=== PATIENT | male | born 1975 | race Two or more races ===

== ENCOUNTER 2018-07-05 23:16 | Inpatient (IN) | payer MEDICAID ==
[~2018-07-05] VITALS: Ht 172.7 cm; Wt 77.1 kg
[~2018-07-05 23:16] MED LIST: CEPHALEXIN500 MG ORAL; IBUPROFEN600 MG ORAL; LIPITOR20 MG ORAL; LOPID600 MG ORAL; NKM; NORCO 5-325 TA1 EACH ORAL
--- NOTE | 2018-07-05 23:30 | NUR ---
ED Nurse Note: RECIEVED PT ON [facility], FROM HOME, AWAKE, ALERT AND ORIENTED X 4, PT IS LYING IN LIKE POSITION, MOANING AND GROANING, IN SEVERE ABDOMINAL PAIN, PT HAS HX OF PANCREATITIS AND STATES HAS BEEN DRINKING ALCOHOL, RATES PAIN AT 9/10, NO CP, NO SOB OR LABORED BREATHING, PT ALSO HAS NAUSEA, IMMEDIATELY GOWNED AND PLACED ON MONITORING, PT IS VERY UNCOMFORTABLE, IMMEDIATELY STARTED IV LINE ANBD LABS DRAWN, MD AWARE OF PT CONDITION.
[2018-07-05] MEDS ORDERED: Metoclopramide 10mg/2ml Inj IVP ONE (23:45)
[2018-07-05] MEDS ORDERED: Morphine Sulfate 4mg/ml Inj (IV USE ONLY) IVP ONE (23:45)
[2018-07-05 23:55] LABS: EOSINOPHILS % (AUTO) 0.6 % (0.0-3.0); HEMATOCRIT 41.5 % (42.0-52.0); LYMPHOCYTES % (AUTO) 17.2 % (20.0-45.0); MEAN CORPUSCULAR VOLUME 89 FL (80-99); MONOCYTES % (AUTO) 5.6 % (1.0-10.0); NEUTROPHILS % (AUTO) 75.6 % (45.0-75.0); PLATELET COUNT 280 K/UL (150-450); RED BLOOD COUNT 4.67 M/UL (4.70-6.10); RED CELL DISTRIBUTION WIDTH 12.1 % (11.6-14.8); WHITE BLOOD COUNT 14.1 K/UL (4.8-10.8)
[2018-07-06] VITALS (7 sets, daily range): BP systolic 96–118; BP diastolic 62–80
[2018-07-06 00:09] LABS: ALANINE AMINOTRANSFERASE < 6 U/L (12-78); ALBUMIN 3.3 G/DL (3.4-5.0); ALKALINE PHOSPHATASE 109 U/L (46-116); ASPARTATE AMINO TRANSFERASE 6 U/L (15-37); BILIRUBIN,TOTAL 1.4 MG/DL (0.2-1.0); BLOOD UREA NITROGEN 9 mg/dL (7-18); CARBON DIOXIDE 21 MMOL/L (21-32); CHLORIDE 96 MMOL/L (98-107); CREATININE 0.7 MG/DL (0.55-1.30); POTASSIUM 4.1 MMOL/L (3.5-5.1); SODIUM 132 MMOL/L (136-145)
[2018-07-06 00:12] LABS: CALCIUM 5.7 MG/DL (8.5-10.1)
[2018-07-06 00:27] LABS: BILIRUBIN,DIRECT < 0.1 MG/DL (0.0-0.3)
--- NOTE | 2018-07-06 01:00 | NUR ---
ED Nurse Note: PT CONTINUES TO REST IN BED, MEDS GIVEN FOR PAIN EFFECTIVE WITH PAIN LEVEL DECREASED TO 6/10, NO NAUSEA OR EMESIS, V/S STABLE, IV SITE PATENT WITYH FLUIDS INFUSING, PT FAMILY AT BEDSIDE, WILL CONTINUE TO CLOSELY MONITOR WHILE WAITING FOR RESULTS.
--- NOTE | 2018-07-06 02:16 | Emergency Room Report ---
History of Present Illness General Chief Complaint: Abdominal Pain Source: Patient Present Illness HPI Patient present with complaints of epigastric abdominal pain reports that he has a history of pancreatitis and feel similar to that Patient reports last flareup was about 3 months ago Patient does have history of increased alcohol intake however also reports that his cholesterol appears to have some pathology to this Pain is 10 out of 10 denies any fevers or chills denies any lower abdominal pain Allergies: Coded Allergies: No Known Allergies (Verified , 07/23/11) Patient History Past Medical History: see triage record Pertinent Family History: none Reviewed Nursing Documentation: PMH: Agreed; PSxH: Agreed Nursing Documentation-PM Past Medical History: No History, Except For Hx Cardiac Problems: Yes - High Cholesterol Hx Cancer: No Hx Gastrointestinal Problems: Yes - Pancreatitis Hx Neurological Problems: No Review of Systems All Other Systems: negative except mentioned in HPI Physical Exam Vital Signs Date Time Temp Pulse Resp B/P (MAP) Pulse Ox O2 Delivery O2 Flow Rate FiO2 07/05/18 23:18 98.2 99 24 132/73 95 Room Air Sp02 EP Interpretation: reviewed, normal General Appearance: mild distress - In pain Head: normocephalic, atraumatic Eyes: bilateral eye PERRL, bilateral eye EOMI ENT: hearing grossly normal, normal pharynx, TMs + canals normal, uvula midline Neck: full range of motion, supple, no meningismus, no bony tend Respiratory: lungs clear, normal breath sounds, no rhonchi, no respiratory distress, no retraction, no accessory muscle use Cardiovascular #1: normal peripheral pulses, regular rate, rhythm, no edema, no gallop, no JVD, no murmur Gastrointestinal: normal bowel sounds, non tender - On palpation however subjectively points to the epigastric area, soft, no mass, no organomegaly, non- distended, no guarding, no hernia, no pulsatile mass, no rebound Genitourinary: no CVA tenderness Musculoskeletal: normal inspection Neurologic: oriented x3, responsive, 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, motor strength/ tone normal, sensory intact Psychiatric: mood/affect normal Skin: normal color, no rash, warm/dry, palpation normal Lymphatic: normal inspection, no adenopathy Medical Decision Making Diagnostic Impression: Primary Impression: Hypocalcemia ER Course Patient is a fairly complex patient with multiple differential to consideration including but not limited to cardiac cardiopulmonary and vascular emergencies Patient's lipase levels that she normal however the calcium level appeared low Ionized calcium is obtained patient had further hydration will have chemistry repeated As the patient's calcium level remains low Patient is admitted for further evaluation and inpatient care Labs Test 07/05/18 23:30 07/06/18 00:00 White Blood Count 14.1 K/UL (4.8-10.8) Red Blood Count 4.67 M/UL (4.70-6.10) Hemoglobin 18.0 G/DL (14.2-18.0) Hematocrit 41.5 % (42.0-52.0) Mean Corpuscular Volume 89 FL (80-99) Mean Corpuscular Hemoglobin 38.5 PG (27.0-31.0) Mean Corpuscular Hemoglobin Concent 43.4 G/DL (32.0-36.0) Red Cell Distribution Width 12.1 % (11.6-14.8) Platelet Count 280 K/UL (150-450) Mean Platelet Volume 5.3 FL (6.5-10.1) Neutrophils (%) (Auto) 75.6 % (45.0-75.0) Lymphocytes (%) (Auto) 17.2 % (20.0-45.0) Monocytes (%) (Auto) 5.6 % (1.0-10.0) Eosinophils (%) (Auto) 0.6 % (0.0-3.0) Basophils (%) (Auto) 1.0 % (0.0-2.0) Sodium Level 132 MMOL/L (136-145) Potassium Level 4.1 MMOL/L (3.5-5.1) Chloride Level 96 MMOL/L (98-107) Carbon Dioxide Level 21 MMOL/L (21-32) Blood Urea Nitrogen 9 mg/dL (7-18) Creatinine 0.7 MG/DL (0.55-1.30) Estimat Glomerular Filtration Rate > 60 mL/min (>60) Glucose Level 225 MG/DL (74-106) Calcium Level 5.7 MG/DL (8.5-10.1) Total Bilirubin 1.4 MG/DL (0.2-1.0) Direct Bilirubin < 0.1 MG/DL (0.0-0.3) Aspartate Amino Transf (AST/SGOT) 6 U/L (15-37) Alanine Aminotransferase (ALT/SGPT) < 6 U/L (12-78) Alkaline Phosphatase 109 U/L (46-116) Total Protein 7.5 G/DL (6.4-8.2) Albumin 3.3 G/DL (3.4-5.0) Globulin 4.2 g/dL Lipase 167 U/L (73-393) Serum Alcohol < 3 mg/dL Rhythm Strip Diag. Results EP Interpretation: yes Rate: 77 Rhythm: NSR, no PVC's, no ectopy Last Vital Signs Date Time Temp Pulse Resp B/P (MAP) Pulse Ox O2 Delivery O2 Flow Rate FiO2 07/06/18 00:32 98.3 07/05/18 23:18 99 24 132/73 95 Room Air Status: improved Disposition: ADMITTED INPATIENT Condition: Serious Scripts Pantoprazole* (PANTOPRAZOLE*) 40 Mg Tablet. 40 MG ORAL DAILY for 30 Days, #30 TAB Prov: Onur Luke MD 07/08/18 Referrals: NOT CHOSEN IPA/,REFERRING (PCP) Yanely Jiang DO Jul 06, 2018 02:16
--- NOTE | 2018-07-06 02:45 | NUR ---
ED Nurse Note: PT RESTING QUIETLY IN BED,A WAKE AND ALERT, PT STATES PAIN LEVEL IS INCREASING AGAIN AND ASKING FOR MORE PAIN MEDS, MD AWARE, NO PAIN MED ORDERS GIVEN, PT REMAINS ON CARDIAC MONITORING, IV SITE PATENT, NAD OR CHANGES NOTED, WILL CONTINUE TO CLOSELY MONITOR.
[2018-07-06] MEDS ORDERED: Lidocaine 2% Visc 15ml soln ORAL ONE (03:15)
[2018-07-06] MEDS ORDERED: Mylanta II UD 30ml ORAL ONE (03:15)
[2018-07-06] MEDS ORDERED: Dicyclomine HCl 10mg/5ml oral soln ORAL ONE (03:15)
[2018-07-06 03:45] LABS: APPEARANCE,URINE CLEAR; BILIRUBIN, URINE NEGATIVE (NEGATIVE); COLOR,URINE PALE YELLOW; GLUCOSE, URINE (UA) NEGATIVE (NEGATIVE); KETONES,URINE 1+ (NEGATIVE); LEUKOCYTE ESTERASE ,URINE 1+ (NEGATIVE); NITRITE,URINE NEGATIVE (NEGATIVE); PH,URINE 6 (4.5-8.0); PROTEIN,URINE NEGATIVE (NEGATIVE); UROBILINOGEN,URINE NORMAL MG/DL (0.0-1.0)
[2018-07-06 03:48] LABS: ALANINE AMINOTRANSFERASE < 6 U/L (12-78); ALBUMIN 2.9 G/DL (3.4-5.0); ALKALINE PHOSPHATASE 99 U/L (46-116); ASPARTATE AMINO TRANSFERASE 5 U/L (15-37); BILIRUBIN,TOTAL 1.1 MG/DL (0.2-1.0); BLOOD UREA NITROGEN 8 mg/dL (7-18); CARBON DIOXIDE 10 MMOL/L (21-32); CHLORIDE 99 MMOL/L (98-107); CREATININE 0.7 MG/DL (0.55-1.30); POTASSIUM 4.6 MMOL/L (3.5-5.1); SODIUM 134 MMOL/L (136-145)
[2018-07-06 03:55] LABS: CALCIUM 5.9 MG/DL (8.5-10.1)
--- NOTE | 2018-07-06 04:00 | NUR ---
ED Nurse Note: PT CONTINUES TO C/O PAIN WORSENING, PT IN BED MOANING AND GUARDING SITE, V/S STABLE, PT RATES PAIN AT 8/10, PT MEDICATED WITH GI COCKTAIL, NOT EFFECTIVE, MD AWARE, WILL CONTINUE TO CLOSELY MONITOR, CALCIUM ADMINISTERED ORDERED, PT TO BE ADMITTED FOR LOW CALCIUM LEVELS.
[2018-07-06 04:13] LABS: PHOSPHORUS 3.3 MG/DL (2.5-4.9)
[2018-07-06] MEDS ORDERED: Calcium Gluconate 10% 1 GM in NS 110 ML IVPB ONE (04:15)
--- NOTE | 2018-07-06 05:10 | NUR ---
ED Nurse Note: pt getting out of bed looking for staff, pt stattes his abd pain is so severe he can not take it, md is aware and has been, no new med orders recieved, reported to charge nurse jack whom called md, no new orders recieved, pt in bed sitting on edge and in pain, will continue to closely monitor and attempt to console for pain as needed. v/s stable and no cp.
[2018-07-06] MEDS ORDERED: HYDROmorphone 1mg/ml Carpuject IVP ONE (05:30)
--- NOTE | 2018-07-06 06:05 | NUR ---
ED Nurse Note: Pt has room for admit, report given to cassandra valle on unit, room is not available yet, nurse will call down when room is clean, pt is in bed awake, alert and oriented x 4, recently medicated with dilaudid for pain, iv site intact and patent, belongings list completed, pt denies cp, sob, or labored breathing, report given to cassandra hill to send pt to floor bed.
--- NOTE | 2018-07-06 06:31 | NUR ---
ED Nurse Note: Patient transferred by Onesimo HANEY to the floor. Patient in stable condition.
--- NOTE | 2018-07-06 06:40 | NUR ---
NURSE NOTES: patient received. patient in no acute distress at this time. patient complains of no pain at this time. patient awake alert and oriented x4. bed in lowest position and locked. call light within reach. bed alarm on. oriented to room. IV intact and asymptomatic. will continue to monitor.
--- NOTE | 2018-07-06 07:08 | NUR ---
HAND-OFF: Report given to cassandra rodríguez.
--- NOTE | 2018-07-06 07:09 | NUR ---
NURSE NOTES: Received patient sleeping comfortably in bed. IV site at right antecubital, 20 gauge, saline lock. Bed at lowest level with 3 side rails up. Call light within reach. In no apparent distress at this time. Will continue to monitor.
[2018-07-06] MEDS ORDERED: Morphine Sulfate 2mg/ml Inj(IV/IM USE ONLY) IVP PRN (07:30)
[2018-07-06] MEDS ORDERED: Morphine Sulfate 4mg/ml Inj (IV USE ONLY) IVP PRN (07:30)
[2018-07-06] MEDS ORDERED: Milk of Magnesia 30ml Ud ORAL PRN (07:30)
[2018-07-06] MEDS ORDERED: Calcium Gluconate 1gm/10ml vial IVP SCH (08:00)
--- NOTE | 2018-07-06 09:10 | NUR ---
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
--- NOTE | 2018-07-06 11:57 | History & Physical ---
History and Physical History & Physicial HP dictated # [id number] Onur Luke MD Jul 06, 2018 11:57
[2018-07-06] MEDS ORDERED: Isovue-300 100ml vial INJ PRN (12:00)
[2018-07-06] MEDS ORDERED: Calcium Gluconate 10% 2 GM in NS 110 ML IVPB SCH (13:00)
[2018-07-06] MEDS: D5 1/2NS 1,000 ML IV SCH ×2 (15:33→18:16)
--- NOTE | 2018-07-06 17:45 | History and Physical Report ---
DATE OF ADMISSION: 07/06/2018 CHIEF COMPLAINT: Epigastric pain. HISTORY OF PRESENT ILLNESS: This is a 42-year-old male, who came to the emergency room yesterday for severe abdominal pain. The patient had a previous history of pancreatitis and feels the same. He describes the pain at 10/10. Pain is waxing and waning. I just saw him now and he had severe pain again. PAST MEDICAL HISTORY: Apparently, the patient has history of hypercholesteremia as well. MEDICATIONS: Reviewed in the EMR. SOCIAL HISTORY: The patient says he does not drink as much a few beers a day. No history of smoking. REVIEW OF SYSTEMS: As above. PHYSICAL EXAMINATION: GENERAL: The patient is a 42-year-old male, in acute distress from his pain. VITAL SIGNS: Blood pressure is 110/73, pulse 80, respirations 16, and temperature 98.3. HEENT: [place] conjunctivae. Anicteric sclerae. NECK: Supple. LUNGS: Clear to auscultation. HEART: S1, S2 without murmurs or rubs. ABDOMEN: Soft. Epigastric tenderness. EXTREMITIES: No cyanosis or edema. LABORATORY FINDINGS: Chemistry panel shows serum sodium 134, potassium 4.6, chloride 99, CO2 10, BUN 8, and creatinine 0.7. Blood sugar is 201. Calcium is 5.9. Phosphorus 3.3. Lipase was 167. UA was unremarkable except 1+ ketones. ASSESSMENT: This is a 42-year-old male with history of alcohol abuse, who presents now with abdominal pain, which is mostly epigastric, so acute gastritis needs to be ruled out. The patient has a reported history of pancreatitis. His lipase is not very elevated, but he may have flare up of some chronic pancreatitis and indeed he has also hypocalcemia, which is concerning and which could go along with diagnosis. PLAN: The patient will be given IV calcium. He was started on proton pump inhibitors. He will have a CT scan of abdomen and pelvis. He is being hydrated with IV fluids. Currently NPO. His laboratories will be followed. Also, we will check his lipid panel and make sure that he does not have severe hypertriglyceridemia. Onur Luke M.D. DR: BHAKTI JOB#: [id number] CC:
--- NOTE | 2018-07-06 19:18 | Diagnostic Imaging Report ---
Indication: Abdominal pain Technique: Continuous helical transaxial imaging of the abdomen and pelvis was obtained from the lung bases to the pubic symphysis during intravenous contrast administration. Coronal 2-D reformats were also obtained. Study obtained in a Siemens sensation [address] Automatic Exposure Control was utilized. Total Dose length Product (DLP): 1403.[address] Dose Index Volume (CTDIvol): 16.55,17.85 mGy Comparison: 07/22/2011 Findings: The head of the pancreas is ill-defined and slightly enlarged. The findings are suspicious for acute pancreatitis. Within the head of the pancreas, there is a small hypodensity. This was probably present on the prior examination but is better demonstrated currently and measures about 8 mm in diameter. This is probably cystic. This may not be related to the pancreatitis. Aortoiliac calcifications are present consistent with atherosclerotic disease. There is mild posterior basal atelectasis. A small hiatal hernia is present. The gallbladder is notable for a fluid fluid level which may be due to sludge. There is no definite biliary ductal dilatation identified within the liver. There is no evidence of bowel obstruction. There is no ascites. The bladder is unremarkable. There is no hydronephrosis. The appendix is partially seen and there are no secondary signs of acute appendicitis. IMPRESSION: Suspected acute pancreatitis in the area of the pancreatic head. 8 mm incidental cystic focus within the head of the pancreas probably present in 2011 though more conspicuous on the current examination. Consider a follow-up contrast-enhanced CT or gadolinium-enhanced MR to evaluate this further. Mild posterior basal atelectasis. Suggestion of a gallbladder sludge. No biliary ductal dilatation identified. Small hiatal hernia. The CT scanner at [facility] is accredited by the [employer] and the scans are performed using dose optimization techniques as appropriate to a performed exam including Automatic Exposure control.
--- NOTE | 2018-07-06 19:19 | NUR ---
HAND-OFF: Report given to LYNDON Aguilar.
--- NOTE | 2018-07-06 19:34 | NUR ---
NURSE NOTES: patient received. patient in no acute distress at this time. patient complains of no pain at this time. patient awake alert and oriented x4. patient IV intact patent and asymptomatic. Patient steady and ambulates to the bathroom. bed in lowest position and locked. call light within reach. will continue to monitor,.
[2018-07-06] MEDS: Atorvastatin 20mg tab ORAL SCH (20:24)
[2018-07-07] VITALS: BP 105/58
[2018-07-07 04:00] VITALS: BP 113/78
[2018-07-07] MEDS: D5 1/2NS 1,000 ML IV SCH ×2 (04:16→14:30)
--- NOTE | 2018-07-07 07:20 | NUR ---
HAND-OFF: Report given to cassandra neville.
[2018-07-07 07:32] LABS: ANION GAP 8 mmol/L (5-15); BLOOD UREA NITROGEN 6 mg/dL (7-18); CALCIUM 8.9 MG/DL (8.5-10.1); CARBON DIOXIDE 30 MMOL/L (21-32); CHLORIDE 100 MMOL/L (98-107); CHOLESTEROL 224 MG/DL (< 200); CREATININE 0.8 MG/DL (0.55-1.30); HDL CHOLESTEROL 20 MG/DL (40-60); POTASSIUM 3.9 MMOL/L (3.5-5.1); SODIUM 138 MMOL/L (136-145); TRIGLYCERIDES 938 MG/DL (30-150)
--- NOTE | 2018-07-07 07:40 | NUR ---
NURSE NOTES: Patient is alert and oriented. No reports of discomfort at the moment. Bed is locked, side rails are up X2, and in lowest position. IVF is infusing at 100 ml/hr. IV is intact. Will continue to monitor.
[2018-07-07 08:00] VITALS: BP 109/73
[2018-07-07 12:00] VITALS: BP 98/60
--- NOTE | 2018-07-07 14:17 | General Progress Note ---
Assessment/Plan Problem List: (1) Hypocalcemia ICD Codes: E83.51 - Hypocalcemia SNOMED: 9623341 (2) Acute pancreatitis ICD Codes: K85.9 - Acute pancreatitis, unspecified SNOMED: 589523112 Status Narrative better Assessment/Plan IVF advance diet DC in AM if stable Subjective Allergies: Coded Allergies: No Known Allergies (Verified , 07/23/11) Subjective feels better Objective Last 24 Hour Vital Signs Date Time Temp Pulse Resp B/P (MAP) Pulse Ox O2 Delivery O2 Flow Rate FiO2 07/07/18 12:00 98.3 84 16 98/60 (73) 98 07/07/18 08:45 Room Air 07/07/18 08:00 97.3 76 16 109/73 (85) 96 07/07/18 04:00 98.2 77 20 113/78 (90) 95 07/07/18 00:00 98.1 81 20 105/58 (74) 97 07/06/18 21:00 Room Air 07/06/18 20:00 98.7 90 18 96/68 (77) 98 07/06/18 17:15 98.6 07/06/18 16:00 98.6 100 20 100/62 (75) 98 Intake and Output 07/06/18 07/07/18 19:00 07:00 Intake Total 2000 ml Balance 2000 ml Intake Oral 2000 ml # Voids 3 2 Laboratory Tests 07/07/18 06:24: Sodium Level 138, Potassium Level 3.9, Chloride Level 100, Carbon Dioxide Level 30, Anion Gap 8, Blood Urea Nitrogen 6L, Creatinine 0.8, Estimat Glomerular Filtration Rate > 60, Glucose Level 109H, Hemoglobin A1c 6.1H, Calcium Level 8.9 #, Calcium (Send out) [Pending], Triglycerides Level 938H, Cholesterol Level 224H, LDL Cholesterol 38, HDL Cholesterol 20L, Cholesterol/HDL Ratio 11.2H, Lipase 64L, Vitamin D 25-Hydroxy [Pending], 25-Hydroxy Vitamin D2 [Pending], 25- Hydroxy Vitamin D3 [Pending], Parathyroid Hormone (Intact) [Pending] Height (Feet): 5 Height (Inches): 8.00 Weight (Pounds): 170 Cardiovascular: normal rate Respiratory/Chest: lungs clear Abdomen: non tender, soft Onur Luke MD Jul 07, 2018 14:17
--- NOTE | 2018-07-07 15:36 | NUR ---
GRIDDLE COOKWIENER PACKER SI:ACUTE PANCREATITIS VS: BP 105/58, P 81, T 97.3, RR 16, SpO2 95 BUN 6, Hemoglobin A1c 6.1 IS:PROTONIX 40mG LIPITOR 20mg DILAUDID 2mg IVP D5/NS x1L IV MED/SURG STATUS
[2018-07-07 16:00] VITALS: BP 109/70
--- NOTE | 2018-07-07 19:30 | NUR ---
HAND-OFF: Report given to LYNDON Jones.
--- NOTE | 2018-07-07 19:30 | NUR ---
NURSE NOTES: Patient awake sitting on chair and seen ambulating around the unit, steady, alert and oriented x4. Instructed the use of call light. Call light and needs in reach. Bed in lowest position, lock engaged and alarm on. Will continue to monitor.
[2018-07-07 20:00] VITALS: BP 110/73
[2018-07-07] MEDS: Atorvastatin 20mg tab ORAL SCH (20:10)
--- NOTE | 2018-07-07 23:35 | NUR ---
NURSE NOTES: Pt requested to be off from IVF.Explained risks and benefits. Pt verbalized understanding.
[2018-07-08 04:00] VITALS: BP 103/71
[2018-07-08] MEDS: D5 1/2NS 1,000 ML IV SCH ×2 (05:39→10:16)
--- NOTE | 2018-07-08 06:53 | NUR ---
HAND-OFF: Report given to LYNDON Tucker.
--- NOTE | 2018-07-08 07:01 | NUR ---
NURSE NOTES: Received report from LYNDON Bhatti. Pt in bed, asleep, respirations regular and unlabored, no apparent distress noted, IV fluids running according to order, bed in lowest position, call light within reach.
[2018-07-08 08:00] VITALS: BP 107/70
--- NOTE | 2018-07-08 10:20 | NUR ---
NURSE NOTES: Pt is asking about being discharged today. Called Dr. Tristan Luke to discuss discharge. Dr. Luke stated he will be in to see the pt today and decide.
[2018-07-08] MEDS ORDERED: PANTOPRAZOLE SO40 MG ORAL (11:47)
--- NOTE | 2018-07-08 11:48 | General Progress Note ---
Assessment/Plan Problem List: (1) Hypocalcemia ICD Codes: E83.51 - Hypocalcemia SNOMED: 3924404 (2) Acute pancreatitis ICD Codes: K85.9 - Acute pancreatitis, unspecified SNOMED: 292120031 Assessment/Plan Dc today keep on protonix no NSAIDs Subjective Allergies: Coded Allergies: No Known Allergies (Verified , 07/23/11) Subjective feels better Objective Last 24 Hour Vital Signs Date Time Temp Pulse Resp B/P (MAP) Pulse Ox O2 Delivery O2 Flow Rate FiO2 07/08/18 09:00 Room Air 07/08/18 08:00 98.2 87 18 107/70 (82) 95 07/08/18 04:00 98.2 74 18 103/71 (82) 97 07/07/18 21:00 Room Air 07/07/18 20:00 99.0 103 18 110/73 (85) 98 07/07/18 16:00 98.5 84 18 109/70 (83) 97 07/07/18 12:00 98.3 84 16 98/60 (73) 98 Intake and Output 07/07/18 07/08/18 18:59 06:59 Intake Total 480 ml 1300 ml Balance 480 ml 1300 ml Intake Oral 480 ml 500 ml IV Total 800 ml # Voids 3 Height (Feet): 5 Height (Inches): 8.00 Weight (Pounds): 170 Cardiovascular: normal rate Respiratory/Chest: lungs clear Abdomen: soft Onur Luke MD Jul 08, 2018 11:48
[2018-07-08 12:00] VITALS: BP 133/56
[2018-07-08] MEDS ORDERED: Tubing IV Secondary IV ONE (13:09)
[2018-07-08] MEDS ORDERED: D5 1/2NS 1000ml IV ONE (13:09)
--- NOTE | 2018-07-08 13:17 | NUR ---
NURSE NOTES: pt discharged home with all belongings. Accompanied by family member, Zenaida. IV removed, ID band removed, pt stable, ambulatory for discharge home.
--- NOTE | 2018-07-12 10:34 | Discharge Summary ---
Discharge Summary Discharge Summary _ DATE OF ADMISSION: 07/06/2018 DATE OF DISCHARGE: 07/08/2018 DISCHARGED BY: Dr. Onur Luke BRIEF HOSPITAL COURSE: Patient is a 42-year-old male, who came to the emergency room complaining of severe abdominal pain. Patient has history of cholesterolemia and pancreatitis and felt symptoms were this same. He described the pain to be 10/10. Pain was waxing and waning. On evaluation at the ED, vital signs were stable. At work showed WBC elevated to 14, hemoglobin 18, hematocrit 41. Sodium was 132, chloride 96, BUN 9 and creatinine 0.7. Glucose was 225, calcium 5.7, LFTs and lipase were normal. Serum alcohol was less than 3. EKG showed normal sinus rhythm. He was admitted for evaluation of abdominal pain, reported history of pancreatitis and hypocalcemia. He was placed on n.p.o. He was given proton pump inhibitors. He was given IV calcium gluconate replacement. He was given IV fluids. CT scan of the abdomen and pelvis showed suspected acute pancreatitis in the area of the pancreatic head. Triglyceride was elevated to 930. LDL 220. Vitamin D 25-OH was 26. PTH is still pending. He was placed on proton pump inhibitors. He was given Lipitor. Lipase normalized. Diet was advanced. Calcium level normalized. He was able to tolerate diet. He was advised to continue Protonix. Patient was discharged home. FINAL DIAGNOSES: Acute pancreatitis Hypocalcemia DISPOSITION: Patient was discharged home. DISCHARGE MEDICATIONS: Refer to Discharge Medication List. DISCHARGE INSTRUCTIONS: Follow-up in a week. I have been assigned to complete a discharge summary on this account, I was not involved with the patient's management. Piedad Blum NP Jul 12, 2018 10:34
== END 2018-07-08 13:10 | disposition home or self-care (01) | DRG 282 ==
LOC: EMR 23:59 → 4E 07-06 04:11 → EDBEDREQ 07-06 05:46
DX: K85.90 Acute pancreatitis without necrosis or infection, unspecified (principal); E83.51 Hypocalcemia
CPT/HCPCS: 36415; 74177; 80048; 80053; 80061; 80307; 80329; 81003; 82248; 82306; 82330; 83036; 83690; 83735; 83970; 84100; 85025; 96361; 96365; 96375; 99285; J2405; J2765

== ENCOUNTER 2018-11-11 18:06 | Emergency (ER) | payer MEDICAID ==
[~2018-11-11] VITALS: Ht 165.1 cm; Wt 70.3 kg
[~2018-11-11 18:06] MED LIST changes: +PANTOPRAZOLE SO40 MG ORAL
[2018-11-11] MEDS ORDERED: NKM (18:21)
--- NOTE | 2018-11-11 18:33 | NUR ---
ED Nurse Note: Pt walked in ED c/o diarrhea x2days, denies n/v.
[2018-11-11 18:45] VITALS: BP 119/75
[2018-11-11 19:10] LABS: BASOPHILS % (AUTO) 0.5 % (0.0-2.0); EOSINOPHILS % (AUTO) 0.2 % (0.0-3.0); HEMATOCRIT 40.2 % (42.0-52.0); LYMPHOCYTES % (AUTO) 13.4 % (20.0-45.0); MEAN CORPUSCULAR VOLUME 89 FL (80-99); MONOCYTES % (AUTO) 6.3 % (1.0-10.0); NEUTROPHILS % (AUTO) 79.6 % (45.0-75.0); PLATELET COUNT 198 K/UL (150-450); RED BLOOD COUNT 4.53 M/UL (4.70-6.10); RED CELL DISTRIBUTION WIDTH 11.9 % (11.6-14.8); WHITE BLOOD COUNT 7.7 K/UL (4.8-10.8)
--- NOTE | 2018-11-11 19:24 | NUR ---
ED Nurse Note: Received patient from LYNDON Gonzalez. patient at no distress at this time. patient unable to give urine
[2018-11-11 19:39] LABS: ALANINE AMINOTRANSFERASE < 6 U/L (12-78); ALBUMIN 3.2 G/DL (3.4-5.0); ALKALINE PHOSPHATASE 100 U/L (46-116); ANION GAP 9 mmol/L (5-15); ASPARTATE AMINO TRANSFERASE < 5 U/L (15-37); BILIRUBIN,TOTAL 0.9 MG/DL (0.2-1.0); BLOOD UREA NITROGEN 11 mg/dL (7-18); CALCIUM 6.7 MG/DL (8.5-10.1); CARBON DIOXIDE 26 MMOL/L (21-32); CHLORIDE 97 MMOL/L (98-107); CREATININE 0.7 MG/DL (0.55-1.30); POTASSIUM 3.9 MMOL/L (3.5-5.1); SODIUM 132 MMOL/L (136-145)
[2018-11-11 19:42] LABS: ALBUMIN/GLOBULIN RATIO 0.8 (1.0-2.7)
[2018-11-11 20:15] LABS: APPEARANCE,URINE CLEAR; BILIRUBIN, URINE NEGATIVE (NEGATIVE); COLOR,URINE PALE YELLOW; GLUCOSE, URINE (UA) NEGATIVE (NEGATIVE); KETONES,URINE NEGATIVE (NEGATIVE); LEUKOCYTE ESTERASE ,URINE NEGATIVE (NEGATIVE); NITRITE,URINE NEGATIVE (NEGATIVE); PH,URINE 6 (4.5-8.0); PROTEIN,URINE NEGATIVE (NEGATIVE); UROBILINOGEN,URINE NORMAL MG/DL (0.0-1.0)
--- NOTE | 2018-11-11 20:54 | Emergency Room Report ---
History of Present Illness General Chief Complaint: Diarrhea Source: Patient Present Illness HPI This patient states that for the past few days he has had a crampy diarrhea and crampy abdominal pain. He has had nausea but no vomiting. He has had intermittent chills. He also states he has been urinating frequently. He denies chest pain or shortness of breath. He denies blood in his stool. He denies recent travel. He has no other complaints. Allergies: Coded Allergies: No Known Allergies (Verified , 07/23/11) Patient History Past Medical History: see triage record, other - HLP Social History: Reports: drug use - THC; Denies: smoking, alcohol use Reviewed Nursing Documentation: PMH: Agreed; PSxH: Agreed Nursing Documentation-PM Past Medical History: No Stated History Hx Cardiac Problems: Yes Hx Cancer: No Hx Gastrointestinal Problems: Yes Hx Neurological Problems: No Review of Systems All Other Systems: negative except mentioned in HPI Physical Exam Vital Signs Date Time Temp Pulse Resp B/P (MAP) Pulse Ox O2 Delivery O2 Flow Rate FiO2 11/11/18 18:14 112 21 111/70 (84) 93 Room Air 11/11/18 18:45 98.9 Sp02 EP Interpretation: reviewed, normal General Appearance: no apparent distress, alert, GCS 15, non-toxic Head: normocephalic, atraumatic Eyes: bilateral eye normal inspection, bilateral eye PERRL ENT: hearing grossly normal, normal pharynx, no angioedema, normal voice Neck: full range of motion, supple/symm/no masses Respiratory: chest non-tender, lungs clear, normal breath sounds, no respiratory distress, no retraction, no accessory muscle use, speaking full sentences Cardiovascular #1: regular rate, rhythm, no edema Gastrointestinal: normal bowel sounds, non tender, soft, non-distended, no guarding, no rebound Rectal: deferred Musculoskeletal: back normal, gait/station normal, normal range of motion, non- tender Neurologic: alert, oriented x3, responsive, motor strength/tone normal, sensory intact, speech normal Psychiatric: judgement/insight normal, memory normal, mood/affect normal, no suicidal/homicidal ideation Skin: no rash, warm/dry Medical Decision Making Diagnostic Impression: Primary Impression: Diarrhea Additional Impression: Hyperglycemia ER Course This patient is found to have hyperglycemia and polyuria. I suspect the patient has undiagnosed diabetes. I will start the patient on metformin very low dose but I instructed the patient to follow-up very closely with his primary care physician. This patient also has a clinical presentation consistent with viral enteritis. The patient's abdominal exam was benign. I do not suspect cholecystitis, pancreatitis, appendicitis or diverticulitis based on history and physical and laboratory workup. This is likely viral in etiology. The patient is nontoxic and nonsurgical at this time. The patient was given return precautions and followup instructions. Laboratory Tests Test 11/11/18 18:40 11/11/18 19:55 White Blood Count 7.7 K/UL (4.8-10.8) Red Blood Count 4.53 M/UL (4.70-6.10) L Hemoglobin 16.0 G/DL (14.2-18.0) Hematocrit 40.2 % (42.0-52.0) L Mean Corpuscular Volume 89 FL (80-99) Mean Corpuscular Hemoglobin 35.3 PG (27.0-31.0) H Mean Corpuscular Hemoglobin Concent 39.8 G/DL (32.0-36.0) H Red Cell Distribution Width 11.9 % (11.6-14.8) Platelet Count 198 K/UL (150-450) Mean Platelet Volume 5.0 FL (6.5-10.1) L Neutrophils (%) (Auto) 79.6 % (45.0-75.0) H Lymphocytes (%) (Auto) 13.4 % (20.0-45.0) L Monocytes (%) (Auto) 6.3 % (1.0-10.0) Eosinophils (%) (Auto) 0.2 % (0.0-3.0) Basophils (%) (Auto) 0.5 % (0.0-2.0) Sodium Level 132 MMOL/L (136-145) L Potassium Level 3.9 MMOL/L (3.5-5.1) Chloride Level 97 MMOL/L (98-107) L Carbon Dioxide Level 26 MMOL/L (21-32) Anion Gap 9 mmol/L (5-15) Blood Urea Nitrogen 11 mg/dL (7-18) Creatinine 0.7 MG/DL (0.55-1.30) Estimate Glomerular Filtration Rate > 60 mL/min (>60) Glucose Level 195 MG/DL (74-106) H Calcium Level 6.7 MG/DL (8.5-10.1) L Total Bilirubin 0.9 MG/DL (0.2-1.0) Aspartate Amino Transferase (AST) < 5 U/L (15-37) L Alanine Aminotransferase (ALT) < 6 U/L (12-78) L Alkaline Phosphatase 100 U/L (46-116) Total Protein 7.3 G/DL (6.4-8.2) Albumin 3.2 G/DL (3.4-5.0) L Globulin 4.1 g/dL Albumin/Globulin Ratio 0.8 (1.0-2.7) L Lipase 47 U/L (73-393) L Serum Alcohol < 3 mg/dL Urine Color Pale yellow Urine Appearance Clear Urine pH 6 (4.5-8.0) Urine Specific [place] 1.015 (1.005-1.035) Urine Protein Negative (NEGATIVE) Urine Glucose (UA) Negative (NEGATIVE) Urine Ketones Negative (NEGATIVE) Urine Blood Negative (NEGATIVE) Urine Nitrite Negative (NEGATIVE) Urine Bilirubin Negative (NEGATIVE) Urine Urobilinogen Normal MG/DL (0.0-1.0) Urine Leukocyte Esterase Negative (NEGATIVE) Urine Opiates Screen Negative (NEGATIVE) Urine Barbiturates Screen Negative (NEGATIVE) Phencyclidine (PCP) Screen Negative (NEGATIVE) Urine Amphetamines Screen Positive (NEGATIVE) H Urine Benzodiazepines Screen Negative (NEGATIVE) Urine Cocaine Screen Negative (NEGATIVE) Urine Marijuana (THC) Screen Negative (NEGATIVE) Last Vital Signs Date Time Temp Pulse Resp B/P (MAP) Pulse Ox O2 Delivery O2 Flow Rate FiO2 11/11/18 18:45 98.9 96 21 119/75 96 Room Air Status: improved Disposition: HOME, SELF-CARE Condition: Improved Patient Instructions: Diarrhea, Adult Brenda Lozano DO Nov 11, 2018 20:54
[2018-11-11] MEDS ORDERED: METFORMIN HCL500 M1 ORAL (20:55)
[2018-11-11 21:00] VITALS: BP 125/73
--- NOTE | 2018-11-11 21:00 | NUR ---
ER DISCHARGE NOTE: Patient is cleared to be discharged per ERMD, pt is aox4, on room air, with stable vital signs. pt was given dc and prescription instructions, pt was able to verbalize understanding, pt id band and iv site removed without complications. pt is able to ambulate with steady gait. pt took all belongings.
== END 2018-11-11 21:00 | disposition home or self-care (01) ==
LOC: EMR 19:02
DX: R19.7 Diarrhea, unspecified (principal); R73.9 Hyperglycemia, unspecified; R10.9 Unspecified abdominal pain
CPT/HCPCS: 36415; 80053; 80307; 80329; 81003; 83690; 85025; 96360; 99284

== ENCOUNTER 2020-01-22 01:04 | Emergency (ER) | payer MEDICAID ==
[~2020-01-22] VITALS: Ht 175.3 cm; Wt 77.1 kg
[~2020-01-22 01:04] MED LIST changes: +METFORMIN HCL500 M1 ORAL
[2020-01-22 01:25] VITALS: BP 111/70
--- NOTE | 2020-01-22 01:25 | NUR ---
ED Nurse Note: pt walked into ED from home c/o left lower leg pain radiating to lower leg, pt has this for 3 months but pain is severely worse tonight 10/10. Pt reports straining leg at work.
[2020-01-22] MEDS ORDERED: Ketorolac 60mg Inj IM ONE (01:30)
[2020-01-22] MEDS ORDERED: TYLENOL EXTRA500 MG ORAL (01:46)
[2020-01-22] MEDS ORDERED: LIDODERM700 M1 TOPIC (01:46)
[2020-01-22] MEDS ORDERED: ROBAXIN-750750 MG PO (01:46)
--- NOTE | 2020-01-22 02:00 | NUR ---
ED Nurse Note: clarified with EDMD if pt needs diagnostic imaging. Per EDMD no imaging to be done.
--- NOTE | 2020-01-22 02:13 | Emergency Room Report ---
History of Present Illness General Chief Complaint: Lower Back Pain or Injury Present Illness HPI 44-year-old male here with right-sided lower back and right leg pain for several months. Patient says that 3 months ago he was at work and lifted something heavy and felt the acute onset of right lower back pain. He says that the pain has come and gone over the past several months since this incident occurred. Has been taking [id number] medications with intermittent relief. Denies any other injuries. No bowel or bladder incontinence. No midline pain. No IV drug use. No steroid use. No falls. Pain is dull nature, located in the right lumbosacral region, occasionally feels radiation down his right leg. No surgical history. Allergies: Coded Allergies: No Known Allergies (Verified , 07/23/11) COVID-19 Screening Contact w/high risk pt: No Experienced COVID-19 symptoms?: No COVID-19 Testing performed [employer]: No Nursing Documentation-PMH Hx Cardiac Problems: Yes Hx Cancer: No Hx Gastrointestinal Problems: Yes Hx Neurological Problems: No Review of Systems All Other Systems: negative except mentioned in HPI Physical Exam Vital Signs Date Time Temp Pulse Resp B/P (MAP) Pulse Ox O2 Delivery O2 Flow Rate FiO2 01/22/20 01:22 98.4 98 16 111/70 (84) 99 Room Air Sp02 EP Interpretation: reviewed, normal General Appearance: no apparent distress, alert, non-toxic Head: normocephalic, atraumatic Eyes: bilateral eye normal inspection, bilateral eye PERRL ENT: hearing grossly normal, normal pharynx, no angioedema, normal voice Neck: full range of motion, supple/symm/no masses Respiratory: chest non-tender, lungs clear, normal breath sounds, speaking full sentences Cardiovascular #1: regular rate, rhythm, no edema Cardiovascular #2: 2+ carotid (R), 2+ carotid (L), 2+ radial (R), 2+ radial (L), 2+ dorsalis pedis (R), 2+ dorsalis pedis (L) Gastrointestinal: normal bowel sounds, non tender, soft, non-distended, no guarding, no rebound Rectal: deferred Genitourinary: normal inspection, no CVA tenderness Musculoskeletal: normal range of motion, gait/station normal, other - Mild right paraspinal tenderness on palpation. No midline tenderness. No saddle anesthesia. Normal leg sensation Neurologic: alert, motor strength/tone normal, oriented x3, sensory intact, responsive, speech normal Psychiatric: judgement/insight normal, memory normal, mood/affect normal, no suicidal/homicidal ideation Reflexes: 3+ bicep (R), 3+ bicep (L), 3+ tricep (R), 3+ tricep (L), 3+ knee ( R), 3+ knee (L) Lymphatic: no adenopathy Medical Decision Making Diagnostic Impression: Primary Impression: Lumbosacral strain ER Course 44-year-old male here with several months of right lower back pain rating down his right leg. Patient a negative straight leg raise test in the emergency department. He had very mild right lumbosacral pain on palpation. No midline pain. No red flag warning signs such as saddle anesthesia, urinary or fecal retention or incontinence. No drug use or steroid use or trauma. The patient did not necessitate any imaging at this time. He was given several pain medications with good resolution of his pain. Given prescription for Robaxin, Tylenol, Lidoderm patch. Will follow-up primary care. Discharged in stable condition. Last Vital Signs Date Time Temp Pulse Resp B/P (MAP) Pulse Ox O2 Delivery O2 Flow Rate FiO2 01/22/20 01:25 98.4 81 16 111/70 99 Room Air Disposition: HOME, SELF-CARE Condition: Stable Scripts Lidocaine Patch* (Lidoderm Patch*) 1 Each Adh..patch 1 PATCH TOPIC DAILY, #7 PATCH 0 Refills Patch(es) may remain in place for up to 12 hours in any 24-hour period. Prov: Estuardo Serrano M.D. 01/22/20 Acetaminophen* (TYLENOL EXTRA STRENGTH*) 500 Mg Tablet 500 MG ORAL Q8H PRN for Prn Headache/Temp > 101, #30 TAB 0 Refills Prov: Estuardo Serrano M.D. 01/22/20 Methocarbamol* (ROBAXIN-750*) 750 Mg Tablet 750 MG PO TID, #21 TAB 0 Refills Prov: Estuardo Serrano M.D. 01/22/20 Patient Instructions: Back Pain, Adult Estuardo Serrano M.D. Jan 22, 2020 02:13
[2020-01-22 02:25] VITALS: BP 117/72
--- NOTE | 2020-01-22 02:25 | NUR ---
ER DISCHARGE NOTE: Patient is cleared to be discharged per CECILIA ADAMES paperwork given, work note and paper prescriptions given with instructions to f/u with PMD. Pt is aox4, on room air, with stable vital signs. pt id band removed. pt took all belongings.
[2020-01-22] MEDS ORDERED: HYDROcodone/Acetamin 5/325 tab ORAL ONE (02:30)
== END 2020-01-22 02:25 | disposition home or self-care (01) ==
LOC: EMR 01:30
DX: S39.012A Strain of muscle, fascia and tendon of lower back, initial encounter (principal); X50.0XXA Overexertion from strenuous movement or load, initial encounter; Y92.9 Unspecified place or not applicable; Y99.0 Civilian activity done for income or pay
CPT/HCPCS: 96372; Z7502; 99283